=== PATIENT | male | born 1950 | race Caucasian/White ===

== ENCOUNTER 2021-11-30 08:59 | Outpatient (CLI) | payer MEDICARE, OTHER ==
[2021-11-30 15:11] LABS: BASOPHILS % (AUTO) 0.9 %; EOSINOPHILS # (AUTO) 0.1 10^3/uL (0.0-0.7); EOSINOPHILS % (AUTO) 2.5 %; HCT - HEMATOCRIT 44.2 % (42.0-52.0); HGB - HEMOGLOBIN 15.1 g/dL (14.0-18.0); LYMPHOCYTES # (AUTO) 1.2 10^3/uL (1.5-3.5); MEAN CORPUSCULAR HEMOGLOBIN 33.5 pg (27.0-31.0); MEAN CORPUSCULAR HGB CONC 34.2 g/dL (32.0-36.0); MEAN PLATELET VOLUME 10.7 fL (7.4-11.4); MONOCYTES # (AUTO) 0.5 10^3/uL (0.0-1.0); NEUTROPHILS # (AUTO) 2.5 10^3/uL (1.5-6.6); NEUTROPHILS % (AUTO) 57.4 %; PLT - PLATELET COUNT 197 10^3/uL (130-450); RED BLOOD COUNT 4.51 10^6/uL (4.70-6.10); RED CELL DISTRIBUTION WIDTH 12.7 % (12.0-15.0); WHITE BLOOD COUNT 4.4 x10^3/uL (4.8-10.8)
[2021-11-30 15:34] LABS: ALBUMIN 4.3 g/dL (3.2-5.5); ALBUMIN/GLOBULIN RATIO 1.7 (1.0-2.2); ALKALINE PHOSPHATASE 41 IU/L (42-121); ALT ALANINE AMINOTRANSFERASE 25 IU/L (10-60); AST ASPARTATE AMINOTRANSFERASE 28 IU/L (10-42); BILIRUBIN,TOTAL 1.4 mg/dL (0.2-1.0); BUN - BLOOD UREA NITROGEN 19 mg/dL (6-20); CALCIUM 9.5 mg/dL (8.5-10.3); CARBON DIOXIDE - CO2 25 mmol/L (21-32); CHLORIDE 108 mmol/L (101-111); CHOL/HDL RATIO 2.7 (<5.0); CHOLESTEROL 184 mg/dL; CREATININE 0.8 mg/dL (0.6-1.2); GFR - MDRD 95 (>89); GLUCOSE 103 mg/dL (70-100); HDL CHOLESTEROL 67 mg/dL; LDL CHOLESTEROL,CALCULATED 108 mg/dL; LDL/HDL RATIO 1.6 (<3.6); POTASSIUM 4.4 mmol/L (3.5-5.0); SODIUM 141 mmol/L (135-145); TOTAL PROTEIN 6.9 g/dL (6.7-8.2); TRIGLYCERIDES 43 mg/dL; VLDL CHOLESTEROL 9 mg/dL
--- NOTE | 2021-11-30 17:13 | XRAY Report ---
PROCEDURE: Cervical Spine w/Flex/Ext INDICATIONS: CERVICALGIA TECHNIQUE: 6 views of the cervical spine were acquired. COMPARISON: None. FINDINGS: Bones: No fractures or dislocations to the T1 level. Disc space narrowing at C5-6 with anterior oste ophytes consistent with disc disease. No suspicious bony lesions. There is normal range of motion be tween flexion and extension, with preserved normal bony alignment. Soft tissues: Prevertebral soft tissues are normal in thickness. IMPRESSION: 1. Degenerative disc disease at C5-6. 2. No acute abnormality. 3. Full range of motion with no instability. Reviewed by: Kaleb Eason on 11/30/2021 5:11 PM PST Approved by: Kaleb Eason on 11/30/2021 5:11 PM PST Station ID: [id number]
--- NOTE | 2021-11-30 17:15 | XRAY Report ---
PROCEDURE: Lumbar Spine w/Flex/Ext INDICATIONS: SCIATICA TECHNIQUE: 6 views of the lumbar spine acquired. COMPARISON: None. FINDINGS: Bones: 5 [id number] vertebrae are present. There is normal bony alignment. No vertebral body compression fractures. No suspicious bony lesions. There is full range of motion with flexion and e xtension with no instability. Disc space narrowing, endplate degenerative changes, endplate sclerosis , and facet arthropathy at L4-5 and L5-S1 consistent with degenerative disc disease. Soft tissues: Overlying bowel gas pattern is normal. No suspicious soft tissue calcifications. Flexion/extension: There is normal range of motion, with preserved normal alignment. IMPRESSION: 1. Degenerative disc disease and facet arthropathy at L4-5 and L5-S1. 2. No acute abnormality. Reviewed by: Kaleb Eason on 11/30/2021 5:14 PM PST Approved by: Kaleb Eason on 11/30/2021 5:14 PM PST Station ID: [id number]
== END 2021-11-30 09:00 | disposition home or self-care (01) ==
LOC: DI.S 08:59
PROVIDERS: ATTEND Internal Medicine
DX: M54.30 Sciatica, unspecified side (principal); M50.322 Other cervical disc degeneration at C5-C6 level; M47.816 Spondylosis without myelopathy or radiculopathy, lumbar region; M51.36 Other intervertebral disc degeneration, lumbar region; Z79.899 Other long term (current) drug therapy; E78.5 Hyperlipidemia, unspecified; Z12.5 Encounter for screening for malignant neoplasm of prostate
CPT/HCPCS: 36415; 72052; 72114; 80053; 80061; 85025; G0103; 83721; 84153

== ENCOUNTER 2022-12-12 09:24 | Outpatient (CLI) | payer MEDICARE, OTHER ==
[2022-12-12 14:18] LABS: BASOPHILS # (AUTO) 0.1 10^3/uL (0.0-0.1); EOSINOPHILS # (AUTO) 0.2 10^3/uL (0.0-0.7); EOSINOPHILS % (AUTO) 3.1 %; HCT - HEMATOCRIT 44.5 % (42.0-52.0); HGB - HEMOGLOBIN 15.4 g/dL (14.0-18.0); LYMPHOCYTES # (AUTO) 1.5 10^3/uL (1.5-3.5); LYMPHOCYTES % (AUTO) 30.9 %; MEAN CORPUSCULAR HGB CONC 34.6 g/dL (32.0-36.0); MEAN CORPUSCULAR VOLUME 98.2 fL (80.0-94.0); MEAN PLATELET VOLUME 10.9 fL (7.4-11.4); MONOCYTES # (AUTO) 0.4 10^3/uL (0.0-1.0); MONOCYTES % (AUTO) 8.6 %; NEUTROPHILS # (AUTO) 2.8 10^3/uL (1.5-6.6); NEUTROPHILS % (AUTO) 56.2 %; PLT - PLATELET COUNT 223 10^3/uL (130-450); RED BLOOD COUNT 4.53 10^6/uL (4.70-6.10); RED CELL DISTRIBUTION WIDTH 12.5 % (12.0-15.0); WHITE BLOOD COUNT 4.9 x10^3/uL (4.8-10.8)
[2022-12-12 14:50] LABS: ALBUMIN 4.1 g/dL (3.2-5.5); ALBUMIN/GLOBULIN RATIO 1.5 (1.0-2.2); ALKALINE PHOSPHATASE 37 IU/L (42-121); ALT ALANINE AMINOTRANSFERASE 19 IU/L (10-60); AST ASPARTATE AMINOTRANSFERASE 22 IU/L (10-42); BILIRUBIN,TOTAL 1.1 mg/dL (0.2-1.0); BUN - BLOOD UREA NITROGEN 21 mg/dL (6-20); CALCIUM 9.5 mg/dL (8.5-10.3); CARBON DIOXIDE - CO2 27 mmol/L (21-32); CHLORIDE 104 mmol/L (101-111); CHOL/HDL RATIO 3.9 (<5.0); CHOLESTEROL 240 mg/dL; GFR - MDRD 73 (>89); GLUCOSE 106 mg/dL (70-100); HDL CHOLESTEROL 62 mg/dL; LDL CHOLESTEROL,CALCULATED 165 mg/dL; LDL/HDL RATIO 2.7 (<3.6); POTASSIUM 4.4 mmol/L (3.5-5.0); SODIUM 139 mmol/L (135-145); TOTAL PROTEIN 6.8 g/dL (6.7-8.2); TRIGLYCERIDES 63 mg/dL; VLDL CHOLESTEROL 13 mg/dL
[2022-12-12 14:54] LABS: THYROID STIMULATING HORMONE 1.87 uIU/mL (0.34-5.60)
== END 2022-12-12 09:25 | disposition home or self-care (01) ==
LOC: LAB.S 09:24
PROVIDERS: ATTEND Registered Nurse
DX: E78.5 Hyperlipidemia, unspecified (principal); Z79.899 Other long term (current) drug therapy
CPT/HCPCS: 36415; 80053; 80061; 83721; 84443; 85025

== ENCOUNTER 2023-03-29 13:43 | Outpatient (CLI) | payer MEDICARE, OTHER ==
--- NOTE | 2023-03-29 14:12 | Sleep Patient Instructions ---
Sleep Center Visit Summary - Patient Visit Information Reason for Visit: Initial consult for evaluation of sleep disordered breathing and other sleep issues. - Patient Instructions Instructions Attached: Sleep Study, Sleep Clinic Visit, Sleep Study Home M onitor Additional Instructions: You will be completing a sleep study, either an in-lab polysomnography (PSG) or home sleep study (HST). You will follow-up in the sleep care office after the sleep study is completed to hear the results and talk about therapy, if needed. You will be called by our office staff to schedule this appointment, but you may contact us with any questions. - Clinic Information Contact: [facility] [address] [place] [address] [email or web address] T: [phone]
--- NOTE | 2023-03-29 14:22 | SLEEP CARE CONSULTATION ---
Information from patient questionnaire entered by Raven Vance. I have reviewed and concur with the information entered by Raven Vance. This document represents the service I personally performed and the decisions made by me, Jennifer Balderrama ARNP. History of Present Illness Service Date and Time: 03/29/2023 1343 Reason for Visit: New patient Chief Complaint: reports: Snoring, Observed pauses in breathing Date of Onset: 30+YRS Usual bedtime: 1030PM Time it takes to fall asleep: 15-30MINS Snores at night: Yes Observed to quit breathing while asleep: Yes Sleeps alone due to snoring: Yes Number of times waking at night: 1 Reasons for waking at night: reports: Bathroom. denies: Choking, Snoring, Gasping for air Toss, Turn, or Twitch while sleeping: Yes Recalls having dreams: Yes Usually gets out of bed at: 7AM Feels refreshed in the morning: No Morning headache: No Sleepy or fatigued during the day: No Ever fallen asleep while driving: No Takes day naps: No Dreams during day naps: No Prior sleep studies: No Additional HPI information: I had the pleasure of seeing SUE MANNING today regarding the possibility of him having a sleep disorder. His current complaints are snoring and observed pauses in breathing. He states that he snores really loud according to his . She has also told him that she has seen him stop breathing at night. He states sometimes they sleep separately because of his snoring. He promised his that he would get his snoring checked out this year. - Parasomnia Symptoms Ever been unable to move upon waking from sleep: No Walks in sleep: No Talks in sleep: No Ever acted out dreams in sleep: No Ever felt weak in the knees when startled or emotional: No Bothered by creepy, crawly, restless sensations in legs: No Problems with memory or concentration: No Subjective Initial [place] Sleepiness Scale score: 8 (03/29/23) Past Medical History Past Medical History: reports: Other (no significant medical history) Social History The patient's occupation is a RETIRED. Patient is and lives in . Have you smoked in the past 12 months: No Years of smokin Quit date: 1971 Alcohol use: Yes Alcohol amount and frequency: 1/2 BOTTLE WINE WITH DINNER, daily Caffeine use: Yes Caffeine amount and frequency: 2-3 CUPS PER DAY Family History Family history of sleep disordered breathing: No Allergies and Home Medications Known drug allergies: Yes (PCN) Drug allergies reviewed: Yes Home medication list reviewed: Yes (no daily medications) Review of Systems Weight gain over past 5 years: 10 Cardiovascular: denies: high blood pressure Gastrointestinal: reports: heartburn Urinary: reports: frequency Neurological: denies: headaches Psychiatric: denies: anxiety, depression Ear/Nose/Throat: reports: nasal congestion, tonsillectomy, wisdom teeth removed Musculoskeletal: reports: back pain Physical Exam Vital signs obtained and entered by: RAVEN Hargrove MA Blood Pressure: 126/64 (LEFT ARM) Cuff size: regular Heart Rate: 67 O2 Saturation: 96 Height: 5 ft 10 in Weight: 207 lb 9.6 oz Body Mass Index: 29.7 BMI Classification: Overweight Neck circumference: 17 Mouth and throat: narrow oropharynx Hard palate: normal Uvula: normal Uvula visualization: 0% Mallampati Class IV Tongue: enlarged in size with teeth harden on lateral edges Tonsils: absent bilaterally Neck: normal w/o lymphadenopathy or thyromegaly Heart: regular rate and rhythm, murmur Lungs: clear bilaterally Impression and Plan 1. Suspected Obstructive Sleep Apnea-Hypopnea Syndrome, as suggested by a history of loud and irregular snoring, observed cessation of breath while asleep and unrefreshed sleep. Narrow oropharynx and obesity are common predisposing factors for obstructive sleep apnea-hypopnea syndrome. I recommend proceeding to polysomnography to confirm the diagnosis and to assess severity. If the patient has significant sleep disordered breathing, a manual CPAP titration study will also be performed to find the optimal treatment pressure. I informed the patient of what the sleep studies involve and after some discussion, obtained agreement to proceed. The pathophysiology of obstructive sleep apnea-hypopnea syndrome was discussed with the patient and health risks of cardiovascular and cerebrovascular disease if not treated. Risks of drowsy driving discussed in detail and patient advised to avoid long distance driving and to tree puller at the first sign of drowsiness. Patient agreed to plan. * Schedule polysomnography +- manual CPAP titration study and return in 1-2 weeks after the study to discuss result and initiate therapy. * Avoid long distance driving or driving when feeling sleepy. * Avoid alcohol, sedative and muscle relaxant around bedtime. * Attempt to lose weight. * Review instructions provided by trained office staff on how to prepare for the sleep study. * Return for follow-up after sleep study completed. Counseling Topics: Weight loss health impact Visit Type: In Office Time Spent with Patient (minutes): 30 Provider Statement: I spent 100% of the Face to Face Visit with the patient with greater than 50% spent counseling the patient and coordination of care.
[2023-03-29 14:23] VITALS: BP 126/64
== END 2023-03-29 13:44 | disposition home or self-care (01) ==
LOC: SC 13:43
PROVIDERS: ATTEND Nurse Practitioner Family
DX: R06.83 Snoring (principal); G47.8 Other sleep disorders; R06.81 Apnea, not elsewhere classified; E66.3 Overweight; Z68.29 Body mass index [BMI] 29.0-29.9, adult; Z87.891 Personal history of nicotine dependence
CPT/HCPCS: 99203; G0463; 99212

== ENCOUNTER 2023-05-03 20:29 | Outpatient (CLI) | payer MEDICARE, OTHER | END 2023-05-03 20:30 | disposition home or self-care (01) | LOC: SC 20:29 | PROVIDERS: ATTEND Nurse Practitioner Family | DX: G47.33 Obstructive sleep apnea (adult) (pediatric) (principal); G47.61 Periodic limb movement disorder | CPT/HCPCS: 95810 ==

== ENCOUNTER 2023-05-24 15:23 | Outpatient (CLI) | payer MEDICARE, OTHER ==
--- NOTE | 2023-05-24 14:20 | SLEEP CARE CONSULTATION ---
Information from patient questionnaire entered by Laura Vance. I have reviewed and concur with the information entered by Laura Vance. This document represents the service I personally performed and the decisions made by me, Jennifer Balderrama ARNP. History of Present Illness Service Date and Time: 05/24/2023 1420 Initial [place] Sleepiness Scale score: 8 (03/29/23) Current [place] Sleepiness Scale score: 7 (05/24/23) Additional HPI information: SUE MANNING returns via telehealth visit for follow up and results of the recently performed polysomnography. Sleep study showed moderate obstructive sleep apnea with an average AHI of 24.7 and tevin oxygen saturation of 87%. He also has severe periodic leg movements of sleep that did not contribute to sleep fragmentation. I explained the pathophysiology behind obstructive sleep apnea. We then spent quite a bit of time discussing different treatment options. For mild obstructive sleep apnea, surgery and oral appliance are alternatives to nasal CPAP therapy but in moderate or severe cases, nasal CPAP is the most effective and reliable treatment. I reviewed the impact of weight changes on sleep apnea and strongly recommended losing weight. After some discussion, the patient opted to go with the nasal CPAP therapy. Nasal autoCPAP set at 4-15 cmH20 will be ordered with rationale explained. A manual titration study will be ordered if unable to find optimal pressure with office adjustments. I explained how CPAP machine works and what to expect when using the machine. Using CPAP every night in order to get used to it was emphasized. Patient advised to put CPAP mask on before getting into bed so as not to fall asleep without CPAP. To assist acclimation to CPAP use, it could also be used for a short time during day while reading or watching TV. The patient was instructed to call the CPAP supplier to discuss any mechanical problem that may occur. If the mask given is uncomfortable or is difficult to keep on through the night even with adjustment, contact the CPAP supplier as many will replace with another mask style if notified before 30 days. If snoring or perceives is not getting enough air or too much air from the machine, notify this office. Rob thompson counseled not drink alcohol less than 4 hours before bedtime as it can increase snoring and apnea. Patient was cautioned about risks of drowsy driving until sleepiness symptoms resolve. Patient denies drowsy driving. Sleep Study - Results Type of Sleep Study: Polysomnography (COMPLETED 05/03/23) Prior sleep studies: No Polysomnography/Home Sleep Study results: IMPRESSION: The quality of the study is good. The patient had reduced sleep efficiency due to a few prolonged awakenings during the night. The sleep architecture was abnormal for sleep fragmentation and lack of slow wave sleep (N3). Respiratory monitoring showed moderate obstructive sleep apnea- hypopnea (AHI = 24.7) associated with frequent arousals, oxyhemoglobin desaturation and mild hypoxia (tevin oxygen saturation of 87%). The respiratory events occurred predominantly during supine sleep (supine AHI = 57.7; non-supine = 16.51). Snore was moderate to very loud in intensity. There was severe periodic leg movement of sleep not contributing to the sleep fragmentation. Cardiac rhythm was normal sinus rhythm with occasional bradycardia (minimum heart rate = 38). No abnormal behavior (parasomnia) observed during the night. Allergies and Home Medications Known drug allergies: Yes (penicillins) Drug allergies reviewed: Yes Home medication list reviewed: Yes (no changes) Allergy and home medication list: Allergies Penicillins Allergy (Verified 05/23/23 14:30) Review of Systems Review of systems same as previous: Yes (no changes) Physical Exam Vital signs obtained and entered by: LAURA Hargrove MA Height: 5 ft 10 in (PER PT) Weight: 207 lb (PER PT) Body Mass Index: 29.7 BMI Classification: Overweight Impression and Plan 1. Obstructive Sleep Apnea-Hypopnea Syndrome, moderate, with lowest oxygen saturation of 87%. He was advised of these findings and is willing to start therapy to control his sleep apnea. As mentioned above, the patient will be started on nasal autoCPAP therapy with pressure set at 4-15 cmH2O. Compliance guidelines also reviewed. A copy of compliance guidelines will be given for reference at check out. Because the apnea is more severe supine, I instructed to avoid sleeping supine using pillow positioning until able to start CPAP use. 2. Periodic limb movement, severe, that did not fragment patients sleep. Periodic limb movement of sleep (PLMS) is characterized by episodes of repetitive limb movements that occur during sleep and usually involve the lower limbs. The etiology is unknown. Caffeine can aggravate PLMS and should be avoided. Sleep hygiene methods can also improve sleep as well as lifestyle changes such as regular exercise. Patient was advised that no treatment is needed at this time. If symptoms increase, then further evaluation is indicated. * Nasal auto CPAP therapy, pressure at 4-15 cm H2O. * Attempt to lose weight. * Avoid alcohol consumption near bedtime. * Avoid supine sleep until using CPAP. * The patient is again cautioned about driving until sleepiness completely reso lves. * Return one month after CPAP obtained. I will assess response to therapy and compliance at that time. Counseling Topics: Weight loss health impact Visit Type: Telehealth Phone Video Type: Doximity Patient Location: Home Location of Provider: Office Patient agrees and consents to this telehealth visit type: Yes Patient agrees to have their insurance billed: Yes Time Spent with Patient (minutes): 17 Provider Statement: I spent 100% of the Telehealth Phone Call with the patient with greater than 50% spent counseling the patient and coordination of care.
== END 2023-05-24 15:24 | disposition home or self-care (01) ==
LOC: SC 15:23
PROVIDERS: ATTEND Nurse Practitioner Family
DX: G47.33 Obstructive sleep apnea (adult) (pediatric) (principal); G47.61 Periodic limb movement disorder; E66.3 Overweight; Z68.29 Body mass index [BMI] 29.0-29.9, adult

== ENCOUNTER 2023-07-13 08:00 | Outpatient (CLI) | payer MEDICARE, OTHER ==
--- NOTE | 2023-07-13 14:55 | XRAY Report ---
PROCEDURE: Lumbar Spine 2 View INDICATIONS: LUMBAGO TECHNIQUE: 2 views of the lumbar spine were acquired. COMPARISON: Lumbar spine x-ray 11/30/2021 FINDINGS: Bones: 5 [id number] vertebrae are present. Mild dextrocurvature of the lumbar spine. Straighten ing of normal lumbar lordosis. There are multilevel degenerative changes of the lumbar spine with fac et arthropathy and disc height loss with degenerative endplate changes and marginal spurring. These a re severe at L4-L5. No vertebral body compression fractures. No suspicious bony lesions. Soft tissues: Overlying bowel gas pattern is normal. No suspicious soft tissue calcifications. Ath erosclerotic vascular calcific indications. IMPRESSION: Multilevel degenerative changes of the lumbar spine, most severe at L4-5 and L5-S1. Mild ly progressed compared to 11/30/2021 x-ray. Reviewed by: Freddie De La Cruz MD on 07/13/2023 2:54 PM PDT Approved by: Freddie De La Cruz MD on 07/13/2023 2:54 PM PDT Station ID: [id number]
== END 2023-07-13 23:59 | disposition home or self-care (01) ==
LOC: DI.S 08:00
PROVIDERS: ATTEND Internal Medicine
DX: M47.816 Spondylosis without myelopathy or radiculopathy, lumbar region (principal); M47.817 Spondylosis without myelopathy or radiculopathy, lumbosacral region

== ENCOUNTER 2024-02-14 07:32 | Outpatient (CLI) | payer MEDICARE, OTHER ==
[2024-02-14 15:19] LABS: BASOPHILS % (AUTO) 0.8 %; EOSINOPHILS # (AUTO) 0.1 10^3/uL (0.0-0.7); EOSINOPHILS % (AUTO) 2.3 %; HCT - HEMATOCRIT 44.3 % (42.0-52.0); HGB - HEMOGLOBIN 15.1 g/dL (14.0-18.0); LYMPHOCYTES # (AUTO) 1.5 10^3/uL (1.5-3.5); LYMPHOCYTES % (AUTO) 31.9 %; MEAN CORPUSCULAR HEMOGLOBIN 34.1 pg (27.0-31.0); MEAN CORPUSCULAR HGB CONC 34.1 g/dL (32.0-36.0); MEAN PLATELET VOLUME 10.9 fL (7.4-11.4); MONOCYTES # (AUTO) 0.5 10^3/uL (0.0-1.0); MONOCYTES % (AUTO) 9.3 %; NEUTROPHILS # (AUTO) 2.7 10^3/uL (1.5-6.6); NEUTROPHILS % (AUTO) 55.5 %; PLT - PLATELET COUNT 207 10^3/uL (130-450); RED BLOOD COUNT 4.43 10^6/uL (4.70-6.10); RED CELL DISTRIBUTION WIDTH 12.7 % (12.0-15.0); WHITE BLOOD COUNT 4.8 x10^3/uL (4.8-10.8)
[2024-02-14 16:16] LABS: ALBUMIN 4.3 g/dL (3.2-5.5); ALKALINE PHOSPHATASE 38 IU/L (42-121); ALT ALANINE AMINOTRANSFERASE 11 IU/L (10-60); AST ASPARTATE AMINOTRANSFERASE 15 IU/L (10-42); BILIRUBIN,TOTAL 0.7 mg/dL (0.2-1.0); BUN - BLOOD UREA NITROGEN 16 mg/dL (6-20); CALCIUM 9.7 mg/dL (8.5-10.3); CARBON DIOXIDE - CO2 28 mmol/L (21-32); CHLORIDE 106 mmol/L (101-111); CHOL/HDL RATIO 3.7 (<5.0); CHOLESTEROL 213 mg/dL; CREATININE 0.8 mg/dL (0.6-1.3); GFR - MDRD 94 (>89); GLUCOSE 112 mg/dL (74-104); HDL CHOLESTEROL 57 mg/dL; LDL CHOLESTEROL,CALCULATED 137 mg/dL; LDL/HDL RATIO 2.4 (<3.6); POTASSIUM 4.3 mmol/L (3.5-4.5); SODIUM 138 mmol/L (135-145); TOTAL PROTEIN 6.5 g/dL (6.4-8.9); TRIGLYCERIDES 97 mg/dL (48-352); VLDL CHOLESTEROL 19 mg/dL
== END 2024-02-14 07:33 | disposition home or self-care (01) ==
LOC: LAB.S 07:32
PROVIDERS: ATTEND Registered Nurse
DX: E78.5 Hyperlipidemia, unspecified (principal); Z79.899 Other long term (current) drug therapy
CPT/HCPCS: 36415; 80053; 80061; 83721; 85025

== ENCOUNTER 2024-02-27 11:45 | Outpatient (CLI) | payer MEDICARE, OTHER ==
[2024-02-27 15:10] LABS: THYROID STIMULATING HORMONE 1.63 uIU/mL (0.34-5.60)
--- NOTE | 2024-02-27 16:45 | XRAY Report ---
PROCEDURE: Chest 2V INDICATIONS: HX OF LUNG CANCER TECHNIQUE: 2 views of the chest were acquired. COMPARISON: None. FINDINGS: Surgical changes and devices: None. Lungs and pleura: No pleural effusions or pneumothorax. Scarring/atelectasis at left lung base is s een. No definite focal infiltrate. Mediastinum: Mediastinal contours appear normal. Heart size is n ormal. Bones and chest wall: No suspicious bony lesions. Overlying soft tissues appear unremarkable. IMPRESSION: Left basilar scarring/atelectasis. No definite focal infiltrate. No pleural effusion or p neumothorax. Reviewed by: Tristin Marrero MD on 02/27/2024 4:44 PM PDT Approved by: Tristin Marrero MD on 02/27/2024 4:44 PM PDT Station ID: [id number]
== END 2024-02-27 11:46 | disposition home or self-care (01) ==
LOC: DI.S 11:45
PROVIDERS: ATTEND Registered Nurse
DX: M54.89 Other dorsalgia (principal); Z80.1 Family history of malignant neoplasm of trachea, bronchus and lung; Z12.5 Encounter for screening for malignant neoplasm of prostate; Z13.29 Encounter for screening for other suspected endocrine disorder; Z79.899 Other long term (current) drug therapy
CPT/HCPCS: 36415; 71046; 84443; G0103; 84153

== ENCOUNTER 2024-03-14 09:38 | Outpatient (CLI) | payer MEDICARE, OTHER ==
--- NOTE | 2024-03-14 16:48 | Ultrasound Report ---
PROCEDURE: Aorta Screening INDICATIONS: HIST OF SMOKING TECHNIQUE: Real time scanning was performed of the aorta and iliac arteries, with image documentatio n. COMPARISON: None. FINDINGS: Aorta: Proximal aortic diameter measures 2.4 x 2.2 cm. Mid-aorta measures 1.9 x 1.9 cm. Distal aor tic diameter is 1.8 x 1.8 cm. Iliac arteries: Right common iliac artery measures 1.3 x 1.3 cm. Left common iliac artery measures 1.2 x 1.4 cm. IMPRESSION: No aneurysmal dilation. Recommended intervals for follow-up imaging of ectatic aortas and abdominal aortic aneurysms, per ACR consensus guidelines: 2.5-2.9 cm: 5 years 3.0-3.4 cm: 3 years 3.5-3.9 cm: 2 years 4.0-4.4 cm: 1 year 4.5-4.9 cm: 6 months + endovascular referral 5.0-5.5 cm: 3-6 months + endovascular referral Reviewed by: Kemi Stauffer MD on 03/14/2024 4:47 PM PDT Approved by: Kemi Stauffer MD on 03/14/2024 4:47 PM PDT Station ID: [id number]
== END 2024-03-14 09:39 | disposition home or self-care (01) ==
LOC: DI 09:38
PROVIDERS: ATTEND Registered Nurse
DX: Z13.6 Encounter for screening for cardiovascular disorders (principal); Z87.891 Personal history of nicotine dependence

== ENCOUNTER 2024-04-08 11:36 | Outpatient (CLI) | payer MEDICARE, OTHER ==
--- NOTE | 2024-04-08 11:19 | SLEEP CARE CONSULTATION ---
Information from patient questionnaire entered by Laura Vance. I have reviewed and concur with the information entered by Laura Vance. This document represents the service I personally performed and the decisions made by , Jennifer Balderrama ARNP. History of Present Illness Service Date and Time: 04/08/2024 1040 Previous diagnosis: Moderate, Obstructive Sleep Apnea-Hypopnea Syndrome AHI: 24.7 (in 04/2023) Reason for follow up: other (8 MONTH F/U) Equipment type: CPAP (RESMED 11, s/u 05/2023 PT NOT TOLERATING CPAP) Equipment obtained from: Other ([facility]; getting supplies) Mask style: Full face (Yolette Full, small/med cushion) Mask brand: [employer] Backup mask available: Yes Last cushion change: Sunday Prior sleep studies: No Type of Sleep Study: Polysomnography (COMPLETED 05/03/23) HPI additional information: SUE MANNING was diagnosed to have moderate, AHI 24.7, obstructive sleep apnea-hypopnea syndrome and returned today for CPAP therapy 8 month follow-up. Sleep Study - Results Type of Sleep Study: Polysomnography (COMPLETED 05/03/23) Prior sleep studies: No CPAP Compliance Data - Data Reviewed with Patient Average duration of nightly device use: 6 HRS 7 MINS Compliance rate %: 83 (08/03/23-04/01/24; 222/243 days used) Current pressure setting (cmH2O): 14-18 (95th, 17.3) Average residual AHI: 6.9 Central apnea: 0.1 Obstructive apnea: 4.5 Hypopnea: 2 Average large leak: 2.2 L/min Subjective Missed days of use due to: reports: mask issues Patient concerns: reports: mask discomfort, mask leak noise, nasal congestion, dry mouth, nose, throat (dry mouth). denies: aerophagia, air blowing in eyes, condensation in mask/hose, epistaxis Observed to snore while using device: No Current pressure setting perceived as: too high On therapy, patient: reports: other (not feeling improvement of sleep). denies: drowsiness while driving Initial [place] Sleepiness Scale score: 8 (03/29/23) Current [place] Sleepiness Scale score: 14 (04/08/24) Allergies and Home Medications Known drug allergies: Yes (as listed) Drug allergies reviewed: Yes Home medication list reviewed: Yes (no changes) Allergy and home medication list: Allergies Penicillins Allergy (Verified 04/03/24 10:27) Review of Systems Review of systems same as previous: Yes (NO CHANGE) Physical Exam Vital signs obtained and entered by: LAURA Hargrove MA Height: 5 ft 10 in (PER PT) Weight: 205 lb Weight change since last visit: PER PT Body Mass Index: 29.4 BMI Classification: Overweight Impression and Plan 1. Obstructive Sleep Apnea-Hypopnea Syndrome, moderate, with good treatment compliance and fair apnea control with elevated residual AHI. Patient has not felt an improvement of daytime fatigue or that his sleep quality is improved. He has been having to really tighten his mask when he wakes up in the night to reduce mask leaking. He has experienced occasional dry mouth. He asks about Inspire implant therapy for sleep apnea. I discussed with him the need for titration study to find optimal pressures. He will also get the opportunity for a mask fitting with a oscillograph technician. We may also need to change him to a BiPAP to get appropriate sleep apnea control. In the meantime, the patients pressure will be changed to autoCPAP 14-17 cmH20 for patient comfort. Patient advised to contact me if pressure change is uncomfortable so that it can be adjusted. Goals for apnea control discussed. I will order a titration study to find the optimal pressure setting for patient. If he still cannot manage to tolerate CPAP therapy we will discuss whether he wants to try Inspire implant. He voiced agreement with plan of care. Patient's apnea severity and rationale for treatment to reduce apnea, improve sleep quality and reduce cardiovascular and cerebrovascular events was reviewed. 2. Overweight, unspecified. Currently patients BMI is 29.4. Obesity increases the risk of apnea, CPAP pressure requirements and overall health risks especially cardiovascular and diabetes. Thus patient is advised to lose weight. * Change auto CPAP pressure to 14-17 cmH2O * Titration study * Notify me if snoring with mask or feeling that the pressure is too much or too little * Attempt to lose weight * Call this office if any problems using CPAP * Return for follow up after titration study, or sooner if concerns arise Adjust device pressure to (cmH2O): 14-17 Counseling Topics: Spare mask, Weight loss health impact Follow up with Sleep Care in: other (after titration study) Visit Type: Telehealth Video Video Type: Doximity Patient Location: Home Location of Provider: Office Patient agrees and consents to this telehealth visit type: Yes Time Spent with Patient (minutes): 23 Provider Statement: I spent 100% of the Telehealth Video Call with the patient with greater than 50% spent counseling the patient and coordination of care.
== END 2024-04-08 11:37 | disposition home or self-care (01) ==
LOC: SC 11:36
PROVIDERS: ATTEND Nurse Practitioner Family
DX: G47.33 Obstructive sleep apnea (adult) (pediatric) (principal); E66.3 Overweight; Z68.29 Body mass index [BMI] 29.0-29.9, adult

== ENCOUNTER 2024-05-16 20:22 | Outpatient (CLI) | payer MEDICARE, OTHER | END 2024-05-16 20:23 | disposition home or self-care (01) | LOC: SC 20:22 | PROVIDERS: ATTEND Nurse Practitioner Family | DX: G47.33 Obstructive sleep apnea (adult) (pediatric) (principal); G47.61 Periodic limb movement disorder | CPT/HCPCS: 95811 ==

== ENCOUNTER 2024-07-01 10:53 | Outpatient (CLI) | payer MEDICARE, OTHER ==
--- NOTE | 2024-07-01 10:16 | SLEEP CARE CONSULTATION ---
Information from patient questionnaire entered by Laura aVnce. I have reviewed and concur with the information entered by Laura Vance. This document represents the service I personally performed and the decisions made by , Jennifer Balderrama ARNP. History of Present Illness Service Date and Time: 07/01/2024 1000 Initial [place] Sleepiness Scale score: 8 (03/29/23) Current [place] Sleepiness Scale score: 6 (07/01/24) Additional HPI information: SUE MANNING returns for follow up of a manual CPAP titration study performed on 05/16/2024. Previous study done on 05/13/24 showed moderate obstructive sleep apnea with AHI 24.7. The patient was informed of the following polysomnography findings: CPAP was initiated at 6 cmH2O and titrated up to 10 cmH2O. CPAP at 10 cmH2O appeared to be optimal (AHI of 1.9 per hour on the pressure). There was supine sleep on the pressure. Oxygen saturation was normal throughout the night. Lower CPAP settings appeared adequate as well. The patient tolerated positive airway pressure therapy fairly well. The patients sleep efficiency was reduced due to prolonged awakening in the middle of the night. Moderate periodic leg movement of sleep noted during study. Sleep Study - Results Type of Sleep Study: Polysomnography (COMPLETED 05/03/23 TITRATION STUDY COMPLETED 05/16/24) Prior sleep studies: No Polysomnography/Home Sleep Study results: IMPRESSION: The quality of the study is good. CPAP was initiated at 6 cmH2O and titrated up to 10 cmH2O. CPAP at 10 cmH2O appeared to be optimal (AHI of 1.9 per hour on the pressure). There was supine sleep on the pressure. Oxygen saturation was normal throughout the night. Lower CPAP settings appeared adequate as well. The patient tolerated positive airway pressure therapy fairly well. The patients sleep efficiency was reduced due to prolonged awakening in the middle of the night. The sleep architecture was abnormal for sleep fragmentation and lack of slow wave sleep (N3). There was moderate periodic leg movement of sleep, not contributing to the sleep fragmentation. Cardiac rhythm was sinus rhythm with frequent premature atrial contractions. No abnormal behavior (parasomnia) observed during the night. CONCLUSIONS and RECOMMENDATIONS: 1. Obstructive sleep apnea-hypopnea (ICD-10 G47.33), moderate (AHI was 24.7), adequately controlled with CPAP at 10 cmH2O. CPAP therapy is, therefore, recommended at the pressure setting. AutoCPAP set between 5 and 10 cmH20 is also appropriate. Mask used was a [employer] Eson nasal mask size medium. With BMI of 29.8 Kg/M2, weight loss is also recommended. 2. 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 Clinical correlation advised. Allergies and Home Medications Known drug allergies: Yes (penicillin) Drug allergies reviewed: Yes Home medication list reviewed: Yes (no changes) Allergy and home medication list: Allergies Penicillins Allergy (Verified 07/01/24 09:35) Review of Systems Review of systems same as previous: No (COVID, COLD) Physical Exam Vital signs obtained and entered by: LAURA Hargrove MA Height: 5 ft 10 in (PER PT) Weight: 207 lb (PER PT) Body Mass Index: 29.7 BMI Classification: Overweight Impression and Plan 1. Obstructive Sleep Apnea-Hypopnea Syndrome, moderate. Patient returns for follow-up after titration study to find optimal pressure. He has optimal pre ssure appeared to be 10 cm H2O with an average residual AHI 1.9 on that pressure. The patients pressure will be changed to autoCPAP 5-10 cmH20. Patient advised to contact me if pressure change is uncomfortable so that it can be adjusted. Goals for apnea control discussed. Patient voiced understanding of results. He asked if was necessary for him to use it and I did advise him that consistent use of his CPAP will help to reduce the stress on his heart. He voiced understanding and will continue to use his CPAP. Patient's apnea severity and rationale for treatment to reduce apnea, improve sleep quality and reduce cardiovascular and cerebrovascular events was reviewed. Patient asking about the Inspire implantable sleep apnea device. He asked if he could have a referral for inspire implant therapy. He just does not like using the CPAP and feels he sleeps better without it. He also does not note a great difference in how he feels as far as fatigue or energy during the day when using the CPAP over not using it. Patient informed that they would have to qualify for this type of therapy. A referral is needed for an ENT specialist who would evaluate if Inspire therapy is indeed right for them. Qualifications to be evaluated for Inspire therapy include a previous diagnosis of moderate to severe obstructive sleep apnea. They must also have tried, failed or have been unable to tolerate CPAP treatment. They should also have a BMI of 32 or less and do not have any other active implantable devices present (like a pacemaker). Patient will need to undergo a sleep endoscopy where they are put under light sedation and the airway is examined by an endoscope to determine the cause of their sleep apnea. If it is determined that Inspire therapy is right for them than they may proceed to implantation. 2. Overweight, unspecified. Currently patients BMI is 29.7. Obesity increases the risk of apnea, CPAP pressure requirements and overall health risks especially cardiovascular and diabetes. Thus patient is advised to lose weight. 3. Periodic limb movement, moderate, that did not fragment patients sleep. Periodic limb movement of sleep (PLMS) is characterized by episodes of repetitive limb movements that occur during sleep and usually involve the lower limbs. The etiology is unknown. Sleep hygiene methods can also improve sleep as well as lifestyle changes such as regular exercise. Patient was advised that no treatment is needed at this time. If symptoms increase, then further evaluation with PCP is indicated. * Change auto CPAP pressure to 5-10 cmH2O * Referral Inspire implant * Notify me if snoring with mask or feeling that the pressure is too much or too little * Attempt to lose weight * Call this office if any problems using CPAP * Return for follow up in 1-2 months, or sooner if concerns arise Adjust device pressure to (cmH2O): 5-10 Counseling Topics: Weight loss health impact Follow up with Sleep Care in: 1-2 months Visit Type: Telehealth Phone Video Type: Kylee Patient Location: Home Location of Provider: Office Patient agrees and consents to this telehealth visit type: Yes Patient agrees to have their insurance billed: Yes Time Spent with Patient (minutes): 25 Provider Statement: I spent 100% of the Telehealth Phone Call with the patient with greater than 50% spent counseling the patient and coordination of care.
== END 2024-07-01 10:54 | disposition home or self-care (01) ==
LOC: SC 10:53
PROVIDERS: ATTEND Nurse Practitioner Family
DX: G47.33 Obstructive sleep apnea (adult) (pediatric) (principal); E66.3 Overweight; Z68.29 Body mass index [BMI] 29.0-29.9, adult; G47.61 Periodic limb movement disorder
CPT/HCPCS: 99442

== ENCOUNTER 2024-07-31 11:19 | Outpatient (CLI) | payer MEDICARE, OTHER ==
--- NOTE | 2024-07-31 11:40 | SLEEP CARE CONSULTATION ---
Information from patient questionnaire entered by Mack Carvajal. I have reviewed and concur with the information entered by Mack Carvajal. This document represents the service I personally performed and the decisions made by , Jennifer Balderrama ARNP. History of Present Illness Service Date and Time: 07/31/2024 1120 Previous diagnosis: Moderate, Obstructive Sleep Apnea-Hypopnea Syndrome AHI: 24.7 (in 04/2023) Reason for follow up: one month (1-Month F/U -Pressure change) Equipment type: CPAP (RESMED 11, s/u 05/2023 PT NOT TOLERATING CPAP) Equipment obtained from: Other ([facility]; getting supplies) Mask style: Full face (Yolette Full, small/med cushion) Backup mask available: Yes (old mask) Last cushion change: last Sunday Prior sleep studies: No Type of Sleep Study: Polysomnography (COMPLETED 05/03/23 TITRATION STUDY COMPLETED 05/16/24) HPI additional information: SUE MANNING was diagnosed to have moderate, AHI 24.7, obstructive sleep apnea-hypopnea syndrome and returns via telephone visit today for CPAP therapy one month follow-up. Sleep Study - Results Type of Sleep Study: Polysomnography (COMPLETED 05/03/23 TITRATION STUDY COMPLETED 05/16/24) Prior sleep studies: No CPAP Compliance Data - Data Reviewed with Patient Average duration of nightly device use: 6 h 42 mins Compliance rate %: 90 Current pressure setting (cmH2O): 10 - 17 (avg 14.4, max 14.7) Average residual AHI: 10.5 Central apnea: 0.1 Obstructive apnea: 6.6 Hypopnea: 3.5 Average large leak: 0.7 L/min Subjective Missed days of use due to: reports: illness (gum surgery this week), other (Last 2 days - had gum surgery earlier this week) Patient concerns: reports: mask discomfort (minor), mask leak noise, nasal congestion, dry mouth, nose, throat (dry mouth). denies: aerophagia, air blowing in eyes, condensation in mask/hose, epistaxis Observed to snore while using device: Yes (Slightly) Current pressure setting perceived as: comfortable On therapy, patient: reports: sleeping better, awakening more refreshed, being more awake and alert during the day, more rested overall. denies: drowsiness while driving Initial [place] Sleepiness Scale score: 8 (03/29/2023) Current [place] Sleepiness Scale score: 7 (07/31/2024) Allergies and Home Medications Known drug allergies: Yes (as listed) Drug allergies reviewed: Yes Home medication list reviewed: Yes (no changes) Allergy and home medication list: Allergies Penicillins Allergy (Verified 07/01/24 09:35) Review of Systems Review of systems same as previous: No (oral surgery ) Physical Exam Vital signs obtained and entered by: Jennifer Paulino NP Height: 5 ft 10 in (PER PT) Weight: 208 lb (Per Pt) Body Mass Index: 29.8 BMI Classification: Overweight Impression and Plan 1. Obstructive Sleep Apnea-Hypopnea Syndrome, moderate, with good treatment compliance and fair apnea control with elevated residual AHI. On CPAP therapy, the patient has better sleep quality and is more rested overall. He has significant improvement of his sleep apnea and is comfortable with CPAP therapy. Despite adjusting his pressure to the optimal pressure as outlined in his titration study his residual AHI is still elevated at 10.5. The obstructive index is at 6.6 and hypopnea index at 3.5. I reviewed past pressure settings and he did have better control at higher pressures. The patients pressure will be changed to autoCPAP 15-18 cmH20 for elevation of residual AHI. Patient advised to contact me if pressure change is uncomfortable so that it can be adjusted. Goals for apnea control discussed. Patient's apnea severity and rationale for treatment to reduce apnea, improve sleep quality and reduce cardiovascular and cerebrovascular events was reviewed. 2. Overweight, unspecified. Currently patients BMI is 29.8. Obesity increases the risk of apnea, CPAP pressure requirements and overall health risks especially cardiovascular and diabetes. Thus patient is advised to lose weight. * Change auto CPAP pressure to 15-18 cmH2O * Notify me if snoring with mask or feeling that the pressure is too much or too little * Attempt to lose weight * Call this office if any problems using CPAP * Return for follow up in 3 months, or sooner if concerns arise Counseling Topics: Spare mask, Weight loss health impact Follow up with Sleep Care in: 3 months Visit Type: Telehealth Phone Video Type: Doximity Patient Location: Home Location of Provider: Office Patient agrees and consents to this telehealth visit type: Yes Patient agrees to have their insurance billed: Yes Time Spent with Patient (minutes): 23 Provider Statement: I spent 100% of the Telehealth Phone Call with the patient with greater than 50% spent counseling the patient and coordination of care.
== END 2024-07-31 11:20 | disposition home or self-care (01) ==
LOC: SC 11:19
PROVIDERS: ATTEND Nurse Practitioner Family
DX: G47.33 Obstructive sleep apnea (adult) (pediatric) (principal); E66.3 Overweight; Z68.29 Body mass index [BMI] 29.0-29.9, adult
CPT/HCPCS: 99443